=== PATIENT | male | born 1960 | race Caucasian/White ===

== ENCOUNTER 2022-11-22 10:09 | Inpatient (IN) | payer OTHER ==
[~2022-11-22] VITALS: Ht 172.7 cm; Wt 77.6 kg
[2022-11-22 10:18] VITALS: BP_SYST 148; PULSE 74; RESP 18; TEMP 98.8
[2022-11-22] MEDS ORDERED: GABA300T25 PO (10:31)
[2022-11-22] MEDS ORDERED: METF-833 PO (10:31)
[2022-11-22] MEDS ORDERED: LORA0.5T PO (10:31)
[2022-11-22] MEDS ORDERED: FAMO-268 PO (10:31)
[2022-11-22] MEDS ORDERED: ATOR40TA68 PO (10:31)
[2022-11-22] MEDS ORDERED: ASPI-1155 PO (10:31)
[2022-11-22] MEDS ORDERED: TRAM50TA PO (10:31)
[2022-11-22] MEDS ORDERED: FURO-150 PO (10:31)
[2022-11-22] MEDS ORDERED: PANT40GR PO (10:31)
[2022-11-22 10:59] LABS: BASOPHILS % (AUTO) 0.3 % (0.0-2.0); HEMATOCRIT 41.9 % (36-54); HEMOGLOBIN 13.8 g/dL (14.0-18.0); LYMPHOCYTES # (AUTO) 0.9 K/uL (1.0-5.5); LYMPHOCYTES % (AUTO) 5.6 % (20.5-51.5); MEAN CORPUSCULAR HEMOGLOBIN 29 pg (27-31); MEAN CORPUSCULAR HGB CONC 33 % (32-36); MEAN CORPUSCULAR VOLUME 88 fL (79.0-98.0); MONOCYTES % (AUTO) 6.5 % (1.7-9.3); NEUTROPHILS # (AUTO) 13.7 K/uL (1.8-7.7); NEUTROPHILS % (AUTO) 87.6 % (40.0-70.0); PLATELET COUNT (AUTO) 206 K/uL (130-430); RED BLOOD CELL COUNT(AUTO) 4.79 MIL/uL (4.2-6.2); RED CELL DISTRIBUTION WIDTH 14.1 % (9.0-15.0); WHITE BLOOD COUNT (AUTO) 15.7 K/uL (4.8-10.8)
[2022-11-22 11:25] LABS: INR 1.1 (0.80-1.20); PROTHROMBIN TIME 11.1 SECS (9.5-12.5)
[2022-11-22 11:39] LABS: ALANINE AMINOTRANSFERASE 21 U/L (12-78); ALBUMIN 4.1 g/dL (3.4-4.8); AMYLASE 143 U/L (0-100); ANION GAP 16 (5-15); ASPARTATE AMINOTRANSFERASE 20 U/L (10-37); CALCIUM 9.1 mg/dL (8.4-11.0); CARBON DIOXIDE 22 mmol/L (23-29); CHLORIDE 94 mmol/L (98-107); CREATININE 1.15 mg/dL (0.55-1.30); GFR AFRICAN AMERICAN 82 mL/min (>90); GLUCOSE 227 mg/dL (74-106); LIPASE 370 U/L (73-393); SODIUM SERUM 132 mmol/L (136-145); TOTAL BILIRUBIN 1.2 mg/dL (0.0-1.0); TOTAL PROTEIN, SERUM 7.9 g/dL (6.4-8.3); UREA NITROGEN, BLOOD 9 mg/dL (8-21)
[2022-11-22 11:41] LABS: GFR NON AFRICAN-AMERICAN 68 mL/min (>90)
[2022-11-22 11:42] LABS: POTASSIUM 2.7 mmol/L (3.5-5.1)
[2022-11-22 11:54] LABS: ACETONE, SERUM NEGATIVE (NEGATIVE)
[2022-11-22] MEDS ORDERED: HALOPERIDOL LACTATE 5 MG/ML VIAL IM ONE (12:00)
[2022-11-22] MEDS ORDERED: POTASSIUM CHLORIDE 20 MEQ/PKT PACKET PO ONE (12:00)
[2022-11-22] MEDS ORDERED: D5/0.45 NS 1,000 ML IV ONE (13:15)
[2022-11-22] MEDS ORDERED: KCL 20 mEq in 100 mL (PREMIX) 100 ML IV ONE (13:30)
[2022-11-22 14:21] LABS: BILIRUBIN,URINE NEGATIVE (NEGATIVE); BLOOD, URINE 1+ (NEGATIVE); CLARITY/URINE HAZY (CLEAR); COLOR,URINE YELLOW (YELLOW); GLUCOSE,URINE NEGATIVE (NEGATIVE); KETONES,URINE 3+ (NEGATIVE); LEUKOCYTE ESTERASE ,URINE 1+ (NEGATIVE); NITRITE, URINE NEGATIVE (NEGATIVE); PH,URINE 8.5 (5.0-8.0); PROTEIN URINE 3+ (NEGATIVE)
[2022-11-22 14:22] LABS: BACTERIA,URINE MANY /HPF (None Seen); MUCUS,URINE None Seen /LPF (None Seen); RBC,URINE NONE SEEN /HPF (0-3)
[2022-11-22] MEDS ORDERED: DULA0.75 SQ (14:58)
[2022-11-22] MEDS ORDERED: FOLI-43 PO (14:58)
[2022-11-22] MEDS ORDERED: SSNOVOLOG SUBCUT (14:58)
[2022-11-22] MEDS ORDERED: INSU100I26 SQ (14:58)
[2022-11-22 16:10] VITALS: BP_SYST 157; PULSE 87; RESP 21; TEMP 98.8; O2SAT 100
[2022-11-22] MEDS ORDERED: MORPHINE 4 MG INJ. 4 MG/ML VIAL IVP PRN (19:15)
[2022-11-22] MEDS ORDERED: LORazepam 2 MG/ML VIAL IVP PRN (19:15)
[2022-11-22] MEDS ORDERED: NALOXONE HCL 0.4 MG/ML AMP (NARCAN) IVP PRN (19:15)
[2022-11-22] MEDS ORDERED: ONDANSETRON HCL 4 MG/2 ML VIAL IVP PRN (19:15)
[2022-11-22] MEDS ORDERED: MORPHINE 2 MG/ML INJ. SYRINGE IVP PRN (19:15)
[2022-11-22] MEDS: D5/0.45 NS 1,000 ML IV SCH (19:30)
[2022-11-22 20:00] VITALS: BP_SYST 137; PULSE 73; RESP 18; TEMP 97.7; O2SAT 99
[2022-11-23] VITALS (8 sets, daily range): BP systolic 99–150; PULSE 56–86; RESP 16–18; TEMP 97.4–98.7; O2SAT 96–100
[2022-11-23] MEDS: cefTRIAXone 1 GM IVPB PREMIX 50 ML IV SCH ×2 (00:27→21:09)
[2022-11-23] MEDS: D5/0.45 NS 1,000 ML IV SCH ×2 (03:45→13:45)
[2022-11-23 04:39] LABS: BASOPHILS # (AUTO) 0.1 K/uL (0.0-0.2); BASOPHILS % (AUTO) 0.4 % (0.0-2.0); EOSINOPHILS % (AUTO) 0.1 % (0.0-4.0); HEMATOCRIT 37.9 % (36-54); HEMOGLOBIN 12.4 g/dL (14.0-18.0); LYMPHOCYTES # (AUTO) 2.1 K/uL (1.0-5.5); LYMPHOCYTES % (AUTO) 15.6 % (20.5-51.5); MEAN CORPUSCULAR HEMOGLOBIN 29 pg (27-31); MEAN CORPUSCULAR HGB CONC 33 % (32-36); MEAN CORPUSCULAR VOLUME 87 fL (79.0-98.0); MONOCYTES # (AUTO) 0.9 K/uL (0.0-1.0); MONOCYTES % (AUTO) 6.9 % (1.7-9.3); NEUTROPHILS # (AUTO) 10.3 K/uL (1.8-7.7); PLATELET COUNT (AUTO) 187 K/uL (130-430); RED BLOOD CELL COUNT(AUTO) 4.34 MIL/uL (4.2-6.2); RED CELL DISTRIBUTION WIDTH 14.3 % (9.0-15.0); WHITE BLOOD COUNT (AUTO) 13.4 K/uL (4.8-10.8)
[2022-11-23 05:17] LABS: CALCIUM 8.3 mg/dL (8.4-11.0); CREATININE 1.13 mg/dL (0.55-1.30)
[2022-11-23] MEDS: INSULIN REGULAR, HUMAN 100 UNITS/ML, 3 ML VIAL (humuLIN R) SUBCUT PRN ×4 (06:16→23:46)
[2022-11-23] MEDS: POTASSIUM CHLORIDE 20 mEq in 100 mL (PREMIX) 100 ML x 2 doses IV SCH ×2 (08:47→11:33)
[2022-11-23] MEDS: PANTOPRAZOLE SODIUM 40 MG TAB PO SCH (08:57)
[2022-11-23] MEDS ORDERED: POTASSIUM CHLORIDE 40 MEQ in NS 250 ML IV ONE (09:00)
[2022-11-24] VITALS: BP_SYST 139; PULSE 70; RESP 18; TEMP 99.2; O2SAT 99
[2022-11-24] MEDS: D5/0.45 NS 1,000 ML IV SCH ×2 (00:35→09:18)
[2022-11-24 06:16] LABS: BASOPHILS % (AUTO) 0.4 % (0.0-2.0); EOSINOPHILS # (AUTO) 0.1 K/uL (0.0-0.4); EOSINOPHILS % (AUTO) 0.6 % (0.0-4.0); HEMOGLOBIN 12.8 g/dL (14.0-18.0); LYMPHOCYTES # (AUTO) 2.3 K/uL (1.0-5.5); LYMPHOCYTES % (AUTO) 23.5 % (20.5-51.5); MEAN CORPUSCULAR HEMOGLOBIN 29 pg (27-31); MEAN CORPUSCULAR HGB CONC 33 % (32-36); MEAN CORPUSCULAR VOLUME 88 fL (79.0-98.0); MONOCYTES # (AUTO) 0.8 K/uL (0.0-1.0); MONOCYTES % (AUTO) 8.3 % (1.7-9.3); NEUTROPHILS # (AUTO) 6.6 K/uL (1.8-7.7); NEUTROPHILS % (AUTO) 67.2 % (40.0-70.0); PLATELET COUNT (AUTO) 186 K/uL (130-430); RED BLOOD CELL COUNT(AUTO) 4.44 MIL/uL (4.2-6.2); RED CELL DISTRIBUTION WIDTH 13.9 % (9.0-15.0); WHITE BLOOD COUNT (AUTO) 9.8 K/uL (4.8-10.8)
[2022-11-24 06:49] LABS: ALBUMIN 3.4 g/dL (3.4-4.8); BILIRUBIN,DIRECT 0.2 mg/dL (0.0-0.3); CALCIUM 8.1 mg/dL (8.4-11.0); CREATININE 0.94 mg/dL (0.55-1.30); POTASSIUM 3.2 mmol/L (3.5-5.1); TOTAL BILIRUBIN 0.7 mg/dL (0.0-1.0); TOTAL PROTEIN, SERUM 6.7 g/dL (6.4-8.3)
[2022-11-24 07:00] VITALS: O2SAT 95
[2022-11-24] MEDS ORDERED: fentaNYL CITRATE/PF 100 MCG/2 ML AMP ONE (07:08)
[2022-11-24] MEDS ORDERED: MIDAZOLAM HCL 5 MG/5 ML VIAL ONE (07:08)
[2022-11-24] MEDS ORDERED: SIMETHICONE 40 MG/0.6 ML ML ONE (07:08)
[2022-11-24 07:11] LABS: ERYTHROCYTE SEDIMENTATION RATE 22 MM/HR (0-15)
[2022-11-24 07:15] VITALS: BP_SYST 119; PULSE 64; RESP 16; TEMP 98.6; O2SAT 100
[2022-11-24] MEDS ORDERED: POTASSIUM CHLORIDE 20 MEQ TAB.PRT.SR PO ONE (08:45)
[2022-11-24 09:00] VITALS: BP_SYST 119; PULSE 64; RESP 16; TEMP 98.6; O2SAT 100
[2022-11-24] MEDS: PANTOPRAZOLE SODIUM 40 MG TAB PO SCH (09:15)
[2022-11-24] MEDS: INSULIN REGULAR, HUMAN 100 UNITS/ML, 3 ML VIAL (humuLIN R) SUBCUT PRN (12:26)
[2022-11-24 16:00] VITALS: BP_SYST 121; PULSE 74; RESP 16; TEMP 97.5; O2SAT 98
[2022-11-24] MEDS ORDERED: CIPR250T4 PO (16:19)
[2022-11-24] MEDS ORDERED: PANT40GR PO (16:20)
[2022-11-24 17:04] VITALS: BP_SYST 121; PULSE 74; RESP 16; TEMP 97.5; O2SAT 98
== END 2022-11-24 18:40 | disposition home or self-care (01) | DRG 872 ==
LOC: SED 10:09 → SMU 13:12
PROVIDERS: ADMIT Preventive Medicine Preventive Medicine/Occupational Environmental Medicine; ATTEND Preventive Medicine Preventive Medicine/Occupational Environmental Medicine
PROC: 0DB68ZX Excision of Stomach, Via Natural or Artificial Opening Endoscopic, Diagnostic (ICD-10-PCS; principal; 2022-11-24 07:30)
DX: A41.9 Sepsis, unspecified organism (principal); N10 Acute pyelonephritis; E87.1 Hypo-osmolality and hyponatremia; K21.00 Gastro-esophageal reflux disease with esophagitis, without bleeding; K29.70 Gastritis, unspecified, without bleeding; E11.40 Type 2 diabetes mellitus with diabetic neuropathy, unspecified; E11.65 Type 2 diabetes mellitus with hyperglycemia; E78.5 Hyperlipidemia, unspecified; I10 Essential (primary) hypertension; E87.6 Hypokalemia; G89.4 Chronic pain syndrome; K74.60 Unspecified cirrhosis of liver; B96.1 Klebsiella pneumoniae [K. pneumoniae] as the cause of diseases classified elsewhere; E83.51 Hypocalcemia
CPT/HCPCS: 36415; 43239; 71045; 76376; 76700-TC; 80048; 80053; 80076; 81000; 82009; 82150; 82962; 83690; 84484; 85025; 85610-TC; 85651-TC; 85730-TC; 87040; 87081; 87086; 88305; 88312; 88313; 93005; 99285; J0696; J1630; J2250; J2405; J3010; J3480; J7050